=== PATIENT | female | born 1995 | race Caucasian/White ===

== ENCOUNTER 2017-11-06 15:59 | Emergency (ER) | payer SELFPAY ==
[~2017-11-06] VITALS: Ht 170.2 cm; Wt 78.0 kg
[2017-11-06 16:01] VITALS: BP 123/71; PULSE 81; RESP 18; TEMP 98.1; O2SAT 99
--- NOTE | 2017-11-06 16:53 | PD ---
HPI Chief Complaint: Related Problem Time Seen by Provider: 16:56 Travel History International Travel<30 days: No Contact w/Intl Traveler<30days: No Traveled to known affect area: No History of Present Illness HPI C/O LOWER CRAMPY ABD PAIN, 6/10, NONRADIATING, NO VAG BLEEDING ASSOC WITH THIS. SEEN AT [facility], AND WAS TRANSFERR[place] [facility] [place]. [facility] Past Medical History Medical History: Denies Significant Hx Diminished Hearing: No ?: LMP: 09/2017 : 3 Para: 2 Past Surgical History Cholecystectomy: Yes Social History Alcohol Use: No Tobacco Use: Yes (6 CIGARETTES PER DAY) Substance Use: Yes (MARIJUANA) Allergies-Medications (Allergen,Severity, Reaction): Coded Allergies: No Known Allergies (Verified Allergy, Unknown, 11/06/17) Reported Meds & Prescriptions Reported Meds & Active Scripts Active No Active Prescriptions or Reported Medications Review of Systems Except as stated in HPI: all other systems reviewed are Neg General / Constitutional: No: Fever Eyes: No: Visual changes HENT: No: Headaches Cardiovascular: No: Chest Pain or Discomfort Respiratory: No: Shortness of Breath Gastrointestinal: Positive: Abdominal Pain Genitourinary: No: Dysuria Musculoskeletal: No: Pain Skin: No Rash Neurologic: No: Weakness Psychiatric: No: Depression Endocrine: No: Polydipsia Hematologic/Lymphatic: No: Easy Bruising Physical Exam Narrative GENERAL: SKIN: Warm and dry. HEAD: Atraumatic. Normocephalic. EYES: Pupils equal and round. No scleral icterus. No injection or drainage. ENT: No nasal bleeding or discharge. Mucous membranes pink and moist. NECK: Trachea midline. No JVD. CARDIOVASCULAR: Regular rate and rhythm. RESPIRATORY: No accessory muscle use. Clear to auscultation. Breath sounds equal bilaterally. GASTROINTESTINAL: Abdomen soft, non-tender, nondistended. MUSCULOSKELETAL: Extremities without clubbing, cyanosis, or edema. No obvious deformities. NEUROLOGICAL: Awake and alert. No obvious cranial nerve deficits. Motor grossly within normal limits. Five out of 5 muscle strength in the arms and legs. Normal speech. PSYCHIATRIC: Appropriate mood and affect; insight and judgment normal. Data Data Last Documented VS Orders Orders Us Pelvis (Ques Preg/Ectopic) (11/06/17 ) Ed Discharge Order (11/06/17 18:09) MDM Medical Decision Making Medical Screen Exam Complete: Yes Emergency Medical Condition: Yes Medical Record Reviewed: Yes Differential Diagnosis ECTOPIC PREG V IUP V UTI Narrative Course patient seen at [facility] where she had hcg in 100k, otherwise normal cbc, bmp and no e/o uti on ua.....patient had ultrasound pelvic done which showed iup at 8weeks Diagnosis Primary Impression: intrauterine Patient Instructions: First Trimester (ED), General Instructions Scripts No Active Prescriptions or Reported Meds Disposition: 01 DISCHARGE HOME Condition: Stable Geovanny Aguilar MD Nov 06, 2017 16:53
--- NOTE | 2017-11-06 17:33 | RADRPT ---
EXAM DATE/TIME: 11/06/2017 16:56 [facility] COMPARISON: No previous studies available for comparison. INDICATIONS : Pelvic pain. LAB(S): [facility] MEDICAL HISTORY : . SURGICAL HISTORY : Cholecystectomy. ENCOUNTER: Initial ACUITY: 1 day PAIN SCORE: 4/10 LOCATION: Bilateral pelvis MEASUREMENTS: UTERUS: 11.2 x 6.9 x 6.8 cm ENDOMETRIAL STRIPE: >20 mm RIGHT OVARY: 3.9 x 2.6 x 2.0 cm LEFT OVARY: 3.4 x 2.5 x 1.7 cm FREE FLUID: No CROWN RUMP LENGTH: 1.7 cm = 8 WKS 0 DAYS FHR: 178 BPM FINDINGS: Ultrasound of the pelvis via transabdominal transvaginal approach demonstrates a single viable intrau terine with a crown-rump length of 1.7 cm corresponding to an 8 week gestation Cardiac acti vity is identified at 178 beats per minute. No free fluid or adnexal masses are identified. Subchorio tierra fluid is present. Examination of the right ovary demonstrates no probable right corpus luteum cyst. Examination of the left ovary demonstrates no abnormality. CONCLUSION: 1. Intrauterine at 8 weeks Jose Hines MD on November 06, 2017 at 17:26 Board Certified Radiologist. This report was verified electronically.
--- NOTE | 2017-11-06 18:09 | PD ---
Physical Exam Narrative Patient signed out to me by Dr. Aguilar to follow-up pelvic ultrasound. Please see his documentation for complete details. Review, patient is a 22-year -old female who comes in complaining of lower abdominal cramping. She believes she is about 6 or 7 weeks . Exam shows no tenderness to palpation. She has had no leakage of fluids. Data Data Last Documented VS Vital Signs Date Time Temp Pulse Resp B/P (MAP) Pulse Ox O2 Delivery O2 Flow Rate FiO2 11/06/17 16:01 98.1 81 18 123/71 (88) 99 Room Air Orders Orders Us Pelvis (Ques Preg/Ectopic) (11/06/17 ) MDM Supervised Visit with [facility]: No Narrative Course Pelvic ultrasound shows a single intrauterine of 8 weeks gestation, no free fluid, no other acute abnormalities. Patient advised of the results. Advised follow-up with OB. Advised to return to the ED as needed for any worsening symptoms. Diagnosis Primary Impression: Abdominal cramping Patient Instructions: Abdominal Pain in (ED), General Instructions Additional Instruction: Follow-up with OB. Drink plenty of water. Return to the ED as needed for any worsening symptoms. Scripts No Active Prescriptions or Reported Meds Disposition: 01 DISCHARGE HOME Condition: Stable Alka Chen MD Nov 06, 2017 18:09
== END 2017-11-06 18:47 | disposition home or self-care (01) ==
LOC: NEPD 15:59
DX: O26.891 Other specified pregnancy related conditions, first trimester (principal); R10.30 Lower abdominal pain, unspecified; O99.331 Smoking (tobacco) complicating pregnancy, first trimester; F17.210 Nicotine dependence, cigarettes, uncomplicated; O99.321 Drug use complicating pregnancy, first trimester; F12.90 Cannabis use, unspecified, uncomplicated; Z3A.08 8 weeks gestation of pregnancy
CPT/HCPCS: 76700; 80053; 81001; 84702; 85025; 86901; 99281; 99284